=== PATIENT | female | born 1985 | race Two or more races ===

== ENCOUNTER 2024-03-18 09:01 | Emergency (ER) | payer OTHER ==
[~2024-03-18] VITALS: Ht 180.3 cm; Wt 81.6 kg
[2024-03-18] MEDS ORDERED: GENTAMICIN SULFA5 ML OTIC (09:30)
== END 2024-03-18 10:14 | disposition home or self-care (01) ==
LOC: ER 09:01
DX: H60.90 Unspecified otitis externa, unspecified ear (principal); Z88.5 Allergy status to narcotic agent